=== PATIENT | male | born 1945 | race Caucasian/White ===

== ENCOUNTER → 2018-11-08 09:37 | Outpatient (CLI) | payer MEDICARE, BC, SELFPAY ==
[2018-11-08 11:06] LABS: Cholesterol 104 mg/dL (140-199); HDL Cholesterol 44 mg/dL (40-60); LDL Cholesterol Calculated 45 mg/dL (<100); Triglycerides 74 mg/dL (35-150)
== END ==
PROVIDERS: Visit Provider Internal Medicine
DX: I25.10 Atherosclerotic heart disease of native coronary artery without angina pectoris (principal)
CPT/HCPCS: 36415; 80061

== ENCOUNTER → 2019-03-06 11:23 | Outpatient (CLI) | payer MEDICARE, BC, SELFPAY ==
--- NOTE | 2019-03-06 | DI.CT.S_ITS ---
PROCEDURE: CT HEAD/BRAIN WO CON INDICATIONS: Concussion without loss of consciousness TECHNIQUE: Noncontrast 4.5 mm thick angled axial sections acquired from the foramen magnum to the vertex, with coronal and sagittal reformats. For radiation dose reduction, the following was used: automated exposure control, adjustment of mA and/or kV according to patient size. COMPARISON: None. FINDINGS: Image quality: Excellent. CSF spaces: Basal cisterns are patent. The ventricles are symmetric in size and shape. Brain: There is a small amount of left superior frontal extra-axial hemorrhage, which is attributed to subdural hemorrhage. This is best seen on coronal images, as on series 4 image 24 and has a maximum thickness of 4 millimeters. No associated significant mass effect can be seen. No additional intracranial hemorrhage is detected. No intracranial masses. There is cerebral volume loss for age, with resultant ventricular and sulcal prominence. There are periventricular and deep white matter chronic small vessel ischemic changes. There is intracranial internal carotid artery atherosclerosis. Skull and face: Calvarium and visualized facial bones appear intact, without suspicious lesions. Postoperative changes of both globes can be seen. Sinuses: Visualized sinuses and mastoids are clear. IMPRESSION: A small amount of acute appearing left-sided subdural hemorrhage can be seen. Note: Critical finding of intracranial hemorrhage related to Dr. Monzon at 11:45 AM [place] time on March 06, 2019 via medical affairs leader.Radha. Dr. Monzon will call back if there are any questions. Dictated by: Greg Harper M.D. on 03/06/2019 at 10:42 Approved by: Greg Harper M.D. on 03/06/2019 at 10:47
[2019-03-06 14:22] LABS: Alanine Aminotransferase 49 IU/L (<50); Albumin 4.3 g/dL (3.5-5.0); Albumin Globulin Ratio 1.5 (1.0-2.8); Alkaline Phosphatase 86 U/L (38-126); Aspartate Aminotransferase 46 IU/L (17-59); BUN Creatinine Ratio 28.6 (6-22); Bilirubin Total 0.6 mg/dL (0.2-1.3); Blood Urea Nitrogen 20 mg/dL (9-20); Carbon Dioxide 31 mmol/L (22-32); Chloride 98 mmol/L (98-107); Estimated Glomerular Filt Rate > 60.0 mL/min (>60); Gamma Glutamyl Transpeptidase 75 U/L (15-73); Globulin 2.9 g/dL (1.7-4.1); Glucose 97 mg/dL (80-110); HEMOLYSIS < 15 (0-50); Potassium 4.5 mmol/L (3.4-5.1); Sodium 136 mmol/L (137-145); Total Protein 7.2 g/dL (6.3-8.2)
[2019-03-06 14:26] LABS: High Sensitivity CRP - Cardiac 0.9 mg/L (1.0-3.0)
[2019-03-06 14:52] LABS: TSH w/ Reflex to FT4 1.73 uIU/mL (0.47-4.68)
[2019-03-10 16:31] LABS: Triiodothyronine T3 Total 100 ng/dL (76-181)
== END ==
PROVIDERS: Visit Provider Internal Medicine
DX: S06.5X0A Traumatic subdural hemorrhage without loss of consciousness, initial encounter (principal); S06.0X0A Concussion without loss of consciousness, initial encounter; I25.119 Atherosclerotic heart disease of native coronary artery with unspecified angina pectoris; R74.0 Nonspecific elevation of levels of transaminase and lactic acid dehydrogenase [LDH]; R68.89 Other general symptoms and signs; X58.XXXA Exposure to other specified factors, initial encounter
CPT/HCPCS: 36415; 70450; 80053; 82977; 84443; 84480; 86140

== ENCOUNTER → 2019-03-09 09:33 | Outpatient (CLI) | payer MEDICARE, BC, SELFPAY ==
--- NOTE | 2019-03-09 09:42 | DI.CT.S_ITS ---
PROCEDURE: CT HEAD/BRAIN WO CON INDICATIONS: SUBDURAL HEMATOMA TECHNIQUE: Noncontrast 4.5 mm thick angled axial sections acquired from the foramen magnum to the vertex, with coronal and sagittal reformats. For radiation dose reduction, the following was used: automated exposure control, adjustment of mA and/or kV according to patient size. COMPARISON: [facility], CT, CT HEAD/BRAIN WO CON, 03/06/2019, 11:27. FINDINGS: Image quality: Excellent. CSF spaces: Basal cisterns are patent. The ventricles are symmetric in size and shape. Brain: There is a small amount of left superior frontal subdural hemorrhage, which is clearly improved compared to the prior examination, now measuring 2-3 mm in thickness. No intracranial masses. There is cerebral volume loss for age, with resultant ventricular and sulcal prominence. There are periventricular and deep white matter chronic small vessel ischemic changes. There is intracranial internal carotid artery atherosclerosis. Skull and face: Calvarium and visualized facial bones appear intact, without suspicious lesions. Sinuses: Small mucous retention cyst can be seen within the left maxillary sinus. The paranasal sinuses and the mastoid air cells are otherwise unremarkable. IMPRESSION: Clearly improved left subdural hemorrhage. Note: Dr. Monzon was not available to discuss this case at the time of this dictation. Findings relayed to Dr. Monzon via office staff, Sandra, at 1107 hrs. [place] time on March 09, 2019. Dr. Monzon will call back if there any questions. Dictated by: Greg Harper M.D. on 03/09/2019 at 10:03 Approved by: Greg Harper M.D. on 03/09/2019 at 10:09
== END ==
PROVIDERS: Visit Provider Internal Medicine
DX: S06.5X0A Traumatic subdural hemorrhage without loss of consciousness, initial encounter (principal); S06.0X0A Concussion without loss of consciousness, initial encounter; X58.XXXA Exposure to other specified factors, initial encounter
CPT/HCPCS: 70450

== ENCOUNTER → 2019-03-24 15:18 | Outpatient (CLI) | payer MEDICARE, BC, SELFPAY ==
--- NOTE | 2019-03-24 | DI.CT.S_ITS ---
PROCEDURE: CT HEAD/BRAIN WO CON INDICATIONS: Traumatic subdural hemorrhage with loss of consciousness TECHNIQUE: Noncontrast 4.5 mm thick angled axial sections acquired from the foramen magnum to the vertex, with coronal and sagittal reformats. For radiation dose reduction, the following was used: automated exposure control, adjustment of mA and/or kV according to patient size. COMPARISON: [facility], CT, CT HEAD/BRAIN WO CON, 03/09/2019, 9:38. FINDINGS: Image quality: Excellent. CSF spaces: Basal cisterns are patent. No extra-axial fluid collections. The ventricles are symmetric in size and shape. Brain: Previous left subdural hemorrhage is no longer visualized. No new areas of hemorrhage are identified. There is cerebral volume loss for age, with resultant ventricular and sulcal prominence. There are periventricular and deep white matter chronic small vessel ischemic changes. There is intracranial internal carotid artery atherosclerosis. Skull and face: Calvarium and visualized facial bones appear intact, without suspicious lesions. Sinuses: Visualized sinuses and mastoids are clear. IMPRESSION: 1. Interval resolution of previous left subdural hemorrhage. Dictated by: Natasha Wallace M.D. on 03/24/2019 at 15:54 Approved by: Natasha Wallace M.D. on 03/24/2019 at 15:56
== END ==
PROVIDERS: Visit Provider Internal Medicine
DX: S06.5X9A Traumatic subdural hemorrhage with loss of consciousness of unspecified duration, initial encounter (principal)
CPT/HCPCS: 70450

== ENCOUNTER → 2019-10-26 17:14 | Outpatient (CLI) | payer MEDICARE, BC, SELFPAY ==
[2019-10-26 18:00] LABS: Add Manual Diff / Slide Review YES; Hemoglobin 13.1 g/dL (13.5-17.5); Mean Corpuscular HGB Conc 34.4 % (30-36); Mean Corpuscular Hemoglobin 31.8 PG (26-34); Mean Corpuscular Volume 92.3 fL (80-100); Platelet Count 156 X10^3/uL (150-400); Red Blood Cell Count 4.12 X10^6/uL (4.5-5.9); Red Cell Distribution Width 13.6 % (11.6-14.8)
[2019-10-26 18:10] LABS: Alanine Aminotransferase 39 IU/L (<50); Albumin 4.3 g/dL (3.5-5.0); Albumin Globulin Ratio 1.3 (1.0-2.8); Alkaline Phosphatase 74 U/L (38-126); Aspartate Aminotransferase 53 IU/L (17-59); BUN Creatinine Ratio 28.6 (6-22); Bilirubin Total 1.1 mg/dL (0.2-1.3); Blood Urea Nitrogen 20 mg/dL (9-20); Calcium 8.7 mg/dL (8.4-10.2); Carbon Dioxide 27 mmol/L (22-32); Chloride 94 mmol/L (98-107); Estimated Glomerular Filt Rate > 60.0 mL/min (>60); Globulin 3.2 g/dL (1.7-4.1); Glucose 102 mg/dL (80-110); HEMOLYSIS < 15 (0-50); Potassium 3.9 mmol/L (3.4-5.1); Sodium 129 mmol/L (137-145); Total Protein 7.5 g/dL (6.3-8.2)
[2019-10-26 18:24] LABS: Neutrophils Absolute Manual 5610 /uL (3000-5900); RBC Morphology Normal Morphology; Total Cells Counted 100
[2019-10-26 18:42] LABS: TSH w/ Reflex to FT4 1.73 uIU/mL (0.47-4.68)
== END ==
PROVIDERS: PCP Internal Medicine; Referring Provider Internal Medicine; Visit Provider Internal Medicine
DX: N50.89 Other specified disorders of the male genital organs (principal); R25.2 Cramp and spasm
CPT/HCPCS: 36415; 80053; 84443; 85025

== ENCOUNTER → 2019-10-28 09:33 | Outpatient (CLI) | payer MEDICARE, BC, SELFPAY ==
--- NOTE | 2019-10-28 | DI.US.S_ITS ---
PROCEDURE: US SCROTUM INDICATIONS: OTHER SPECIFIED DISORDERS OF MALE GENTALIA TECHNIQUE: Real-time scanning was performed of the scrotum and testicles, with image documentation. Color and pulse Doppler interrogation was performed of both testicles. COMPARISON: None. FINDINGS: Right: Testicle is normal in size at 2.1 x 2.9 x 4.3 cm, and homogenous in echotexture. Epididymis is normal in overall size and morphology except for presence of a 2.2 x 2.5 x 2.1 cm cyst at the right epididymal head, the etiology of palpable lump in that area.. No hydrocele but there is a very small varicocele. Overlying scrotal skin is normal in thickness. Left: Testicle is normal in size at 2.1 x 2.8 x 4.3 cm, and homogeneous in echotexture. Epididymis is normal in overall size and morphology. No varicoceles. There is a small left-sided hydrocele, minimal in size Overlying scrotal skin is normal in thickness. Doppler: Color and pulse Doppler demonstrate normal and symmetric arterial flow in both testicles. IMPRESSION: Epididymal head cyst on the right measures up to 2.5 cm and causes the palpable abnormality of current clinical concern. No testicular malignancy is suspected. Very small right-sided varicocele and scant left hydrocele. Dictated by: César Soni M.D. on 10/28/2019 at 11:19 Approved by: César Soni M.D. on 10/28/2019 at 11:40
== END ==
PROVIDERS: PCP Internal Medicine; Referring Provider Internal Medicine; Visit Provider Internal Medicine
DX: N50.89 Other specified disorders of the male genital organs (principal); N50.3 Cyst of epididymis
CPT/HCPCS: 76870

== ENCOUNTER → 2019-12-15 07:44 | Outpatient (CLI) | payer MEDICARE, BC, SELFPAY ==
[2019-12-15 08:13] LABS: Bacteria Urine None Seen; WBC Urine None Seen (0-5/HPF)
[2019-12-15 09:36] LABS: Hemoglobin 13.8 g/dL (13.5-17.5); Mean Corpuscular HGB Conc 33.6 % (30-36); Mean Corpuscular Hemoglobin 31.4 PG (26-34); Mean Corpuscular Volume 93.4 fL (80-100); Platelet Count 152 X10^3/uL (150-400); Red Blood Cell Count 4.39 X10^6/uL (4.5-5.9); Red Cell Distribution Width 13.8 % (11.6-14.8); White Blood Cell Count 16.8 X10^3/uL (4.5-11.0)
[2019-12-15 09:38] LABS: Add Manual Diff / Slide Review YES; Appearance Urine UA CLEAR; Bilirubin Urine UA NEGATIVE (NEGATIVE); Color Urine UA YELLOW; Glucose Urine UA NEGATIVE (Negative); Ketones Urine UA NEGATIVE (NEGATIVE); Leukocyte Esterase Urine UA NEGATIVE (NEGATIVE); Nitrite Urine UA NEGATIVE (Negative); Occult Blood Urine UA NEGATIVE (Negative); Protein Urine UA NEGATIVE (Negative); Urobilinogen Urine UA 0.2 E.U./dL (0.2)
[2019-12-15 09:48] LABS: Culture Indicated Urine Cult Not Indicated; RBC Urine 0-1/HPF (0-5/HPF)
[2019-12-15 09:55] LABS: Cholesterol 117 mg/dL (140-199); Gamma Glutamyl Transpeptidase 40 U/L (15-73); HDL Cholesterol 39 mg/dL (40-60); LDL Cholesterol Calculated 59 mg/dL (<100); Triglycerides 97 mg/dL (35-150)
[2019-12-15 10:03] LABS: Sodium Urine Random 92 mmol/L (30-90)
[2019-12-15 10:04] LABS: NT-proBNP (BNP-Adult 18+) 100 pg/mL (<450)
[2019-12-15 10:13] LABS: Neutrophils Absolute Manual 4704 /uL (3000-5900); RBC Morphology Normal Morphology; Total Cells Counted 100
[2019-12-15 10:47] LABS: Alanine Aminotransferase 40 IU/L (<50); Albumin 4.4 g/dL (3.5-5.0); Albumin Globulin Ratio 1.3 (1.0-2.8); Alkaline Phosphatase 73 U/L (38-126); Aspartate Aminotransferase 51 IU/L (17-59); BUN Creatinine Ratio 21.5 (6-22); Bilirubin Total 0.9 mg/dL (0.2-1.3); Blood Urea Nitrogen 17 mg/dL (9-20); Calcium 9.1 mg/dL (8.4-10.2); Carbon Dioxide 31 mmol/L (22-32); Chloride 98 mmol/L (98-107); Estimated Glomerular Filt Rate > 60.0 mL/min (>60); Globulin 3.3 g/dL (1.7-4.1); Glucose 98 mg/dL (80-110); HEMOLYSIS < 15 (0-50); Potassium 4.4 mmol/L (3.4-5.1); Sodium 136 mmol/L (137-145); Total Protein 7.7 g/dL (6.3-8.2)
[2019-12-16 16:12] LABS: Osmolality Urine 584 mOsmol/kg (.); Osmolality, Serum 280 mOsmol/kg (280-301)
== END ==
PROVIDERS: PCP Internal Medicine; Referring Provider Internal Medicine; Visit Provider Internal Medicine
DX: E78.5 Hyperlipidemia, unspecified (principal); E87.1 Hypo-osmolality and hyponatremia; Z86.79 Personal history of other diseases of the circulatory system; D72.820 Lymphocytosis (symptomatic); D64.9 Anemia, unspecified
CPT/HCPCS: 36415; 80053; 80061; 81001; 82977; 83880; 83930; 83935; 84300; 85025

== ENCOUNTER → 2019-12-31 16:02 | Outpatient (CLI) | payer MEDICARE, BC, SELFPAY ==
--- NOTE | 2019-12-31 | DI.MRI.S_ITS ---
PROCEDURE: MR HEAD/BRAIN WO CON INDICATIONS: HEADACHE, UNSPECIFIED TECHNIQUE: Non-contrast axial T1 spin echo, axial T2 fast spin echo, sagittal and axial FLAIR, coronal T2 fast spin echo, axial gradient echo, axial diffusion and ADC through the brain. COMPARISON: [facility], CT, CT HEAD/BRAIN WO CON, 03/24/2019, 15:32. [facility], CT, CT HEAD/BRAIN WO CON, 03/09/2019, 9:38. [facility], CT, CT HEAD/BRAIN WO CON, 03/06/2019, 11:27. FINDINGS: Image quality: Excellent. CSF spaces: Ventricles appear symmetric in size and shape. Basal cisterns are patent. No extra-axial fluid collections. Brain: There is an epidural hematoma in the right parietal lobe measuring 1.8 x 2.0 x 6.5 cm, new since the CT on 03/24/2019. Based on the MR signal characteristics, the hematoma is likely late subacute. There is mild mass effect. No midline shift. Trace subdural hematoma along the right convexity may be present. Small subdural hematoma in the left frontal lobe on prior CT exams have resolved. No intracranial bleeds or mass effects. There is mild cerebral volume loss for age. There are mild periventricular and deep white matter chronic small vessel ischemic changes. Brainstem appears normal. Diffusion-weighted images show no acute ischemic insults. No chronic ischemic insults. Normal intravascular flow voids are present. Skull and face: Calvarial bone marrow is normal in signal. Orbits are normal. Sinuses: There is bilateral frontal, ethmoid and maxillary sinus mucosal thickening. The mastoids are clear. IMPRESSION: 1. There is a late subacute epidural hematoma in the right parietal lobe measuring 1.8 x 2.0 x 6.5 cm. There is mild mass effect. No midline shift. I have discussed the result with the patient. Attempt was made to contact the patient's primary care doctor Dr. Mendiola. Dr. Mendiola's office was closed. The patient was sent the ER to be evaluated. I spoke with Dr. Del Rosario in ER regarding the patient and the MRI result. 2. Bilateral frontal, ethmoid and maxillary sinus mucosal thickening consistent with chronic sinusitis. Dictated by: Benjie Feldman M.D. on 12/31/2019 at 17:16 Approved by: Benjie Feldman M.D. on 12/31/2019 at 17:41
== END ==
PROVIDERS: PCP Internal Medicine; Referring Provider Internal Medicine; Visit Provider Internal Medicine
DX: I62.1 Nontraumatic extradural hemorrhage (principal); R51.9 Headache, unspecified
CPT/HCPCS: 70553

== ENCOUNTER 2019-12-31 17:50 | Emergency (ER) | payer MEDICARE, BC, SELFPAY ==
[2019-12-31 18:07] VITALS: BP 190/87; PULSE 89; RESP 16; TEMP 36.8; O2SAT 97; BMI 23.8
--- NOTE | 2019-12-31 18:18 | ED.NEUROSD ---
HPI - Neuro Symptoms/Deficit General Chief Complaint: Neuro Symptoms/Deficit Stated Complaint: brain bleed per MRI Time Seen by Provider: 12/31/19 18:03 Source: patient Mode of arrival: Ambulatory Limitations: no limitations History of Present Illness HPI Narrative: Patient is a 74-year-old male who was sent to the emergency department after having an outpatient MRI of his brain performed earlier today. The MRI showed a subacute epidural hematoma of the right parietal lobe. Patient states that the MRI was initially ordered by his primary provider. Was actually ordered at the beginning of this month which was 3 and half weeks ago. He saw his primary provider at that visit because he was having what he describes as sinus pain and also some visual disturbances. At the beginning of the year he had a traumatic subdural hematoma. Which had subsequent CT scans that showed resolution of this. He denied over the past 2 months any trauma. And states that over the past 2 weeks he has essentially been symptom-free. On Anticoagulants: No Review of Systems Constitutional Constitutional: Denies fever(s) and Denies headache(s) Eyes Eyes: Denies change in vision ENT Ears, Nose, Mouth, and Throat: Denies vertigo, Denies dizziness, Denies headache(s), Denies disequilibrium and Denies sinus pressure Cardiovascular Cardiovascular: Denies chest pain and Denies dyspnea Respiratory Respiratory: Denies dyspnea Gastrointestinal Gastrointestinal: Denies abdominal pain, Denies nausea and Denies vomiting Musculoskeletal Musculoskeletal: Denies tingling Integumentary/Breasts Skin/Breast: Denies rash Neurologic Neurologic: Denies abnormal speech, Denies confusion, Denies vertigo, Denies dizziness, Denies headache(s), Denies memory loss, Denies tingling and Denies disequilibrium Psychiatric Psychiatric: Denies confusion and Denies memory loss Hematologic/Lymphatic Hematologic/Lymphatic: Denies easy bleeding and Denies easy bruising Allergic/Immunologic Allergic/Immunologic: Denies urticaria Patient History Medical History Subdural hematoma (Acute) Social History Smoking Status: Former smoker Smoking Status: Former smoker Substance Use Type: does not use Exam Initial Vital Signs Initial Vital Signs: Vital Signs Temperature 98.3 F 12/31/19 18:07 Pulse Rate 89 12/31/19 18:07 Respiratory Rate 16 12/31/19 18:07 Blood Pressure 190/87 H 12/31/19 18:07 Pulse Oximetry 97 12/31/19 18:07 Const General: cooperative, comfortable and well developed Limitations: mental status not altered HENMT Head: normal to inspection and normocephalic Resp Effort & Inspection: normal respiratory effort Cardio Rate: regular rate Skin Lesions: no lesions Rashes: no rashes Neuro General: patient alert, patient awake and patient oriented x3 Cognition: normal cognition Gait: normal gait Extrem General: normal to inspection Psych Appearance: grossly normal and well kempt Scores GCS Rio coma scale eye opening: Spontaneous Rio coma scale verbal response: Orientated [place] coma scale motor response: Obey commands [place] coma scale total score: 15 Course Vital Signs Vital signs: Vital Signs - 8 hr 12/31/19 18:07 12/31/19 19:41 12/31/19 20:00 Temperature 98.3 F Pulse Rate 89 53 L 53 L Respiratory Rate 16 Blood Pressure 190/87 H 141/73 H Pulse Oximetry 97 97 95 MDM - Neuro Symptoms/Deficit Imaging Data MRI: Radiologist's Impression: [place] [address] Magnetic Resonance Report Signed Patient: Segundo Dee#: [id number] : 4Acct:[id number] Age/Sex: 74 / MDate of Service: 12/31/19 Loc: MRI Accession Number: [id number] Procedure: MR head/brain wo/w con Ordering Provider: Marlena Monzon MD PROCEDURE: MR HEAD/BRAIN WO CON INDICATIONS: HEADACHE, UNSPECIFIED TECHNIQUE: Non-contrast axial T1 spin echo, axial T2 fast spin echo, sagittal and axial FLAIR, coronal T2 fast spin echo, axial gradient echo, axial diffusion and ADC through the brain. COMPARISON: [facility], CT, CT HEAD/BRAIN WO CON, 03/24/2019, 15:32. [facility], CT, CT HEAD/BRAIN WO CON, 03/09/2019, 9:38. [facility], CT, CT HEAD/BRAIN WO CON, 03/06/2019, 11:27. FINDINGS: Image quality: Excellent. CSF spaces: Ventricles appear symmetric in size and shape. Basal cisterns are patent. No extra-axial fluid collections. Brain: There is an epidural hematoma in the right parietal lobe measuring 1.8 x 2.0 x 6.5 cm, new since the CT on 03/24/2019. Based on the MR signal characteristics, the hematoma is likely late subacute. There is mild mass effect. No midline shift. Trace subdural hematoma along the right convexity may be present. Small subdural hematoma in the left frontal lobe on prior CT exams have resolved. No intracranial bleeds or mass effects. There is mild cerebral volume loss for age. There are mild periventricular and deep white matter chronic small vessel ischemic changes. Brainstem appears normal. Diffusion-weighted images show no acute ischemic insults. No chronic ischemic insults. Normal intravascular flow voids are present. Skull and face: Calvarial bone marrow is normal in signal. Orbits are normal. Sinuses: There is bilateral frontal, ethmoid and maxillary sinus mucosal thickening. The mastoids are clear. IMPRESSION: 1. There is a late subacute epidural hematoma in the right parietal lobe measuring 1.8 x 2.0 x 6.5 cm. There is mild mass effect. No midline shift. I have discussed the result with the patient. Attempt was made to contact the patient's primary care doctor Dr. Mendiola. Dr. Mendiola's office was closed. The patient was sent the ER to be evaluated. I spoke with Dr. Del Rosario in ER regarding the patient and the MRI result. 2. Bilateral frontal, ethmoid and maxillary sinus mucosal thickening consistent with chronic sinusitis. Dictated by: Benjie Feldman M.D. on 12/31/2019 at 17:16 Approved by: Benjie Feldman M.D. on 12/31/2019 at 17:41 [facility] Narrative Medical decision making narrative: The MRI included in this note is for reference purposes only. It was ordered by his primary doctor and obtained as an outpatient. 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 Given the patient had normal neurologic symptoms he recommended discharge home and a repeat CT scan in approximately 6 weeks scan that can be ordered by his primary provider. Had a discussion with him regarding this. Had a discussion about return precautions. He expressed understanding and agreement. Discharge Plan Departure Patient Disposition: Home Clinical Impression: Epidural hematoma Discharge Date/Time: 12/31/19 20:50 Instructions: DI for Epidural Hematoma Activity Restrictions/Additional Instructions: I discussed your case this evening with Dr. Hogan who is a neurosurgeon at [facility]. He evaluated your MRI. He recommended that you have a follow-up head CT in 6 weeks. This can be ordered by your primary provider. Be sure to keep all of your scheduled medical appointments. Return to the emergency department for any new or worsening symptoms to include headaches, vision changes, nausea and vomiting that is not controlled, balance issues or any other new or worsening symptoms Referrals: Marlena Monzon MD [Primary Care Provider] -
--- NOTE | 2019-12-31 18:41 | PC.NURSE ---
pt reports a headache for weeks. started as a sinus infection. reports he was finally able to get scheduled for an MRI today. pt is AAOX4. denies any complaints.
[2019-12-31 19:41] VITALS: PULSE 53; O2SAT 97
[2019-12-31 20:00] VITALS: BP 141/73; PULSE 53; O2SAT 95
== END 2019-12-31 20:50 | disposition home or self-care (01) ==
PROVIDERS: Emergency Provider Emergency Medicine; PCP Internal Medicine
DX: S06.4X9A Epidural hemorrhage with loss of consciousness of unspecified duration, initial encounter (principal)
CPT/HCPCS: 70553; 99281; 99283

== ENCOUNTER → 2020-01-15 07:55 | Outpatient (CLI) | payer MEDICARE, BC, SELFPAY ==
--- NOTE | 2020-01-15 | DI.MRI.S_ITS ---
PROCEDURE: MR HEAD/BRAIN WO CON INDICATIONS: Epidural hemorrhage without loss of consciousness, TECHNIQUE: Non-contrast axial T1 spin echo, axial T2 fast spin echo, sagittal and axial FLAIR, coronal T2 fast spin echo, axial gradient echo, axial diffusion and ADC through the brain. COMPARISON: [facility], CT, CT HEAD/BRAIN WO CON, 03/24/2019, 15:32. [facility], CT, CT HEAD/BRAIN WO CON, 03/09/2019, 9:38. [facility], CT, CT HEAD/BRAIN WO CON, 03/06/2019, 11:27. [facility], MR, MR HEAD/BRAIN WO CON, 12/31/2019, 16:44. FINDINGS: Image quality: Excellent. CSF spaces: Ventricles appear symmetric in size and shape. Basal cisterns are patent. There is again seen an extra-axial fluid collection, which appears lens shaped and is seen along the right posterior superior cerebral hemisphere. This measures 6.3 x 1.7 cm in greatest axial dimension, compared to 6.5 x 5 2 cm, when measured in a similar fashion. Associated mass effect is seen, yet without midline shift. There is associated thickening seen of the right dura, with increased signal on FLAIR imaging. Brain: There is cerebral volume loss for age. There are periventricular and deep white matter chronic small vessel ischemic changes. Brainstem appears normal. Diffusion-weighted images show no acute ischemic insults. No chronic ischemic insults. Normal intravascular flow voids are present. Skull and face: Calvarial bone marrow is normal in signal. Orbits are normal. Sinuses: Atrr-[id number] mucosal thickening is seen within the ethmoid air cells. Sinuses and mastoids are otherwise clear. IMPRESSION: Slowly resolving epidural hemorrhage. Dictated by: Greg Harper M.D. on 01/15/2020 at 9:01 Approved by: Greg Harper M.D. on 01/15/2020 at 9:08
[2020-01-15 09:19] LABS: Hematocrit 40.4 % (41-53); Hemoglobin 13.6 g/dL (13.5-17.5); Mean Corpuscular HGB Conc 33.7 % (30-36); Mean Corpuscular Hemoglobin 31.4 PG (26-34); Mean Corpuscular Volume 93.2 fL (80-100); Platelet Count 144 X10^3/uL (150-400); Prothrombin Time 11.9 SECONDS (10.1-12.7); Red Blood Cell Count 4.34 X10^6/uL (4.5-5.9); White Blood Cell Count 16.4 X10^3/uL (4.5-11.0)
[2020-01-15 09:22] LABS: PTT Partial Thromboplastin Tim 29 SECONDS (26.4-36.2)
[2020-01-15 09:25] LABS: Add Manual Diff / Slide Review YES
[2020-01-15 09:27] LABS: Blood Urea Nitrogen 17 mg/dL (9-20); Carbon Dioxide 35 mmol/L (22-32); Chloride 98 mmol/L (98-107); Estimated Glomerular Filt Rate > 60.0 mL/min (>60); Glucose 80 mg/dL (80-110); HEMOLYSIS < 15 (0-50); Magnesium 2.2 mg/dL (1.6-2.3); Potassium 4.5 mmol/L (3.4-5.1); Sodium 136 mmol/L (137-145)
[2020-01-15 10:23] LABS: Sodium Urine Random 53 mmol/L (30-90)
[2020-01-15 10:29] LABS: Neutrophils Absolute Manual 2624 /uL (3000-5900); Total Cells Counted 100
[2020-01-15 10:30] LABS: Platelet Estimate Decreased on smear; RBC Morphology Normal Morphology
[2020-01-15 10:31] LABS: Reactive Lymphocytes 1+
== END ==
PROVIDERS: PCP Internal Medicine; Referring Provider Internal Medicine; Visit Provider Internal Medicine
DX: S06.4X Epidural hemorrhage (principal); C91.10 Chronic lymphocytic leukemia of B-cell type not having achieved remission; E87.1 Hypo-osmolality and hyponatremia; I25.10 Atherosclerotic heart disease of native coronary artery without angina pectoris
CPT/HCPCS: 36415; 70551; 80048; 83735; 84300; 85025; 85610; 85730

== ENCOUNTER → 2020-02-29 08:57 | Outpatient (CLI) | payer MEDICARE, BC, SELFPAY ==
--- NOTE | 2020-02-29 | DI.MRI.S_ITS ---
PROCEDURE: MR HEAD/BRAIN WO CON INDICATIONS: Epidural hemorrhage without loss of consciousness TECHNIQUE: Non-contrast axial T1 spin echo, axial T2 fast spin echo, sagittal and axial FLAIR, coronal T2 fast spin echo, axial gradient echo, axial diffusion and ADC through the brain. COMPARISON: [facility], , MR HEAD/BRAIN WO CON, 01/15/2020, 8:47. FINDINGS: Image quality: Excellent. CSF spaces: Ventricles appear symmetric in size and shape. Basal cisterns are patent. No extra-axial fluid collections. Brain: The previously seen right parietal epidural hemorrhage has decreased in size, with a current maximal thickness of roughly 13 mm (previously measuring 18 mm in the same plane).. There is cerebral volume loss for age. There are periventricular and deep white matter chronic small vessel ischemic changes. Brainstem appears normal. Diffusion-weighted images show no acute ischemic insults. No chronic ischemic insults. Normal intravascular flow voids are present. Skull and face: Calvarial bone marrow is normal in signal. Orbits are normal. Sinuses: Mastoids are clear. Mild mucosal thickening in the bilateral frontal, ethmoid, sphenoid, and maxillary sinuses. IMPRESSION: 1. Resolving right epidural hemorrhage. 2. Volume loss and small vessel ischemic disease. 3. Sinus disease. Dictated by: Oscar Varela M.D. on 02/29/2020 at 11:42 Approved by: Oscar Varela M.D. on 02/29/2020 at 11:43
== END ==
PROVIDERS: PCP Internal Medicine; Referring Provider Internal Medicine; Visit Provider Internal Medicine
DX: S06.4X0A Epidural hemorrhage without loss of consciousness, initial encounter (principal); J32.4 Chronic pansinusitis
CPT/HCPCS: 70551

== ENCOUNTER → 2022-07-04 16:54 | Outpatient (CLI) | payer MEDICARE, BC, SELFPAY ==
--- NOTE | 2022-07-04 16:56 | DI.MRI.S_ITS ---
PROCEDURE: MR ANKLE RT WO CON INDICATIONS: Pain in right ankle and joints of right foot TECHNIQUE: Noncontrast sagittal T1 spin echo and T2 fast spin echo with fat saturation, axial proton density fast spin echo and T2 fast spin echo with fat saturation, coronal T1 spin echo and T2 fast spin echo with fat saturation through the ankle/hindfoot. COMPARISON: None. FINDINGS: Image quality: Excellent. Bones and joints: No bone marrow contusions or fractures. Subchondral cyst formation within the posterior inferior talus adjacent to the talocalcaneal joint. No hindfoot coalitions. No osteochondral injuries of the talar dome. No pathologic joint effusions. Medial structures: There is moderate ill-defined subcutaneous T2 signal elevation medially. The posterior tibialis, flexor digitorum longus, and flexor hallucis longus tendons are intact. Small amount of fluid surrounds the tibialis posterior and flexor digitorum longus tendons. The posterior tibial neurovascular bundle appears normal within the tarsal tunnel, without extrinsic mass effect. The deep layer (anterior and posterior tibiotalar ligaments) and superficial layer (tibionavicular, tibiospring, and tibiocalcaneal ligaments) of the deltoid ligament appear normal. The spring ligament components (superomedial calcaneonavicular, medioplantar oblique calcaneonavicular, and inferoplantar longitudinal ligaments) are intact. Lateral structures: Moderate ill-defined subcutaneous T2 signal elevation laterally. The anterior talofibular, calcaneofibular, and posterior talofibular ligaments appear intact. More superiorly, the anterior and posterior tibiofibular ligaments appear intact, as is the intermalleolar ligament. The tibiofibular syndesmosis is normal in width at 2 mm or less. The peroneus longus and brevis tendons demonstrate normal location and morphology. Adjacent bony peroneal tubercle and retrotrochlear prominence are normal in size. The sinus tarsi demonstrates normal fatty signal, without edema, fibrosis, or cyst formation. Visualized sinus tarsi components (cervical ligament, interosseous talocalcaneal ligament, roots of the inferior extensor retinaculum) appear normal. The calcaneonavicular and calcaneocuboid components of the bifurcate ligament appear intact. The dorsal calcaneocuboid ligament appears intact. Anterior structures: The tibialis anterior and extensor digitorum longus tendons are intact. There is full-thickness tearing of the extensor hallucis tendon distally at the level of the navicular. The dorsal talonavicular ligament appears intact. Posterior and plantar structures: Achilles tendon is intact. Medial and lateral bands of the plantar fascia are of normal thickness. No abductor digiti quinti muscle atrophy to suggest Dominguez neuropathy. IMPRESSION: 1. Full-thickness tearing of the extensor hallucis tendon. 2. Medial flexor tenosynovitis. 3. Diffuse subcutaneous edema versus cellulitis. 4. Talocalcaneal joint osteoarthritis. Dictated by: Oscar Varela M.D. on 07/05/2022 at 8:21 Approved by: Oscar Varela M.D. on 07/05/2022 at 8:25
== END ==
PROVIDERS: PCP Internal Medicine; Referring Provider Podiatrist; Visit Provider Podiatrist
DX: S96.811A Strain of other specified muscles and tendons at ankle and foot level, right foot, initial encounter (principal); M25.571 Pain in right ankle and joints of right foot; M65.871 Other synovitis and tenosynovitis, right ankle and foot; M19.071 Primary osteoarthritis, right ankle and foot
CPT/HCPCS: 73721

== ENCOUNTER 2022-07-09 11:23 | Emergency (ER) | payer MEDICARE, BC, SELFPAY ==
[2022-07-09 11:53] VITALS: BP 132/75; PULSE 55; RESP 16; TEMP 36.9; O2SAT 99; BMI 24.4
--- NOTE | 2022-07-09 12:09 | DI.US.S_ITS ---
PROCEDURE: US PERIPH VENOUS LOW EXTREM BI INDICATIONS: SWELLING TECHNIQUE: Real-time imaging, as well as color and pulse Doppler interrogation, were performed of the deep veins of both legs from the inguinal ligament to the popliteal fossa. COMPARISON: None. FINDINGS: Right: The common femoral, femoral and popliteal veins are normally compressible, and free of intraluminal thrombus. Color and pulse Doppler demonstrate normal phasic intravascular flow. There is normal augmentation response to distal compression maneuver. Left: The common femoral, femoral and popliteal veins are normally compressible, and free of intraluminal thrombus. Color and pulse Doppler demonstrate normal phasic intravascular flow. There is normal augmentation response to distal compression maneuver. Moderate bilateral calf soft tissue edema is seen. IMPRESSION: No evidence of DVT in visualized bilateral lower extremity veins. Bilateral calf soft tissue edema. Dictated by: Gigi Borden M.D. on 07/09/2022 at 13:36 Approved by: Gigi Borden M.D. on 07/09/2022 at 13:36
[2022-07-09 13:00] VITALS: PULSE 72
--- NOTE | 2022-07-09 14:25 | ED_ITS ---
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 Patient has a appointment with ortho specialist Dr. Blanchard tomorrow. Patient called Dr. Blanchard about the bilateral leg pain today, she sent him to the ED to rule out DVTs. Patient states that he has been sleeping in a recliner with his feet hanging down, after which his legs have been painful. Patient denies numbness, tingling, weakness. Patient is able to walk with a crutch. Related Data Allergies Allergy/AdvReac Type Severity Reaction Status Date / Time acetaminophen [From Zydone] Allergy Severe Confusion Verified 07/09/22 12:01 hydrocodone [From Zydone] Allergy Severe Confusion Verified 07/09/22 12:01 Review of Systems <Enid Leyva PA-C - Last Filed: 07/09/22 14:32> Review of Systems ROS Unobtainable: All systems reviewed & are unremarkable except as noted in HPI and below Constitutional Constitutional: Denies chills, Denies fatigue, Denies fever(s), Denies frequent falls, Denies lethargy and Denies weakness Eyes Eyes: Denies change in vision, Denies eye discharge, Denies irritation and Denies loss of vision ENT Ears, Nose, Mouth, and Throat: Denies change in voice, Denies dizziness, Denies neck pain, Denies sore throat and Denies throat swelling Cardiovascular Cardiovascular: Denies chest pain, Denies irregular heart rhythm, Denies lightheadedness, Denies palpitations, Denies dyspnea, Denies dyspnea on exertion and Denies orthopnea Respiratory Respiratory: Denies cough, Denies dyspnea, Denies dyspnea on exertion and Denies wheezing Gastrointestinal Gastrointestinal: Denies abdominal pain, Denies change in bowel habits, Denies diarrhea, Denies nausea and Denies vomiting Genitourinary Genitourinary: Denies hematuria, Denies flank pain, Denies urinary incontinence and Denies urinary urgency Musculoskeletal Musculoskeletal: Denies back pain, Denies muscle weakness, Denies neck pain, Denies numbness and Denies tingling Comments: Bilateral lower leg pain Integumentary/Breasts Skin/Breast: Denies pruritus, Denies erythema, Denies rash and Denies wounds Neurologic Neurologic: Denies behavioral changes, Denies confusion, Denies dizziness, Denies frequent falls, Denies loss of vision, Denies numbness, Denies tingling and Denies weakness Psychiatric Psychiatric: Denies anxiety, Denies behavioral changes, Denies confusion, Denies depression, Denies homicidal ideation and Denies suicidal ideation Endocrine Endocrine: Denies fatigue, Denies flushing and Denies palpitations Hematologic/Lymphatic Hematologic/Lymphatic: Denies easy bruising Allergic/Immunologic Allergic/Immunologic: Denies urticaria, Denies throat swelling and Denies wheezing Patient History <Enid Leyva PA-C - Last Filed: 07/09/22 14:32> Medical History Subdural hematoma Social History Smoking Status: Former smoker Smoking Status: Former smoker alcohol intake frequency: 0-2 drinks per day Substance Use Type: does not use Exam <Enid Leyva PA-C - Last Filed: 07/09/22 14:32> Narrative Exam Narrative: Const General:?cooperative, healthy appearing and comfortable [facility] Head:?normal to inspection Ears:?hearing grossly normal bilaterally Nose:?external nose normal Face and sinus:?normal facial exam and sinuses nontender Mouth:?oral mucosae normal Throat:?posterior oropharynx normal Eyes General:?appearance normal, both eyes and all related structures Neck Neck:?normal visual inspection and no lymphadenopathy noted Resp Effort & Inspection:?normal respiratory effort Auscultation:?clear to auscultation bilaterally Cardio Rate:?regular rate Rhythm:?regular rhythm Musculoskeletal Strength and sensation intact. Patient is walking with crutches due to tear of the extensor hallucis tendon in the right leg. Patient is neurovascularly intact. Neuro General:?patient alert, patient awake and patient oriented x3 Initial Vital Signs Initial Vital Signs: Vital Signs Temperature 98.4 F 07/09/22 11:53 Pulse Rate 55 L 07/09/22 11:53 Respiratory Rate 16 07/09/22 11:53 Blood Pressure 132/75 07/09/22 11:53 Pulse Oximetry 99 07/09/22 11:53 Oxygen Delivery Method Room Air 07/09/22 11:53 <Madeleine Almanza DO - Last Filed: 07/10/22 15:12> Initial Vital Signs Initial Vital Signs: Vital Signs Temperature 98.4 F 07/09/22 11:53 Pulse Rate 55 L 07/09/22 11:53 Respiratory Rate 16 07/09/22 11:53 Blood Pressure 132/75 07/09/22 11:53 Pulse Oximetry 99 07/09/22 11:53 Oxygen Delivery Method Room Air 07/09/22 11:53 Course <Enid Leyva PA-C - Last Filed: 07/09/22 14:32> Orders Ordered: ED Orders 07/09/22 12:09 US periph venous low extrem bi Stat Vital Signs Vital signs: Vital Signs - 8 hr 07/09/22 11:53 Temperature 98.4 F Pulse Rate 55 L Respiratory Rate 16 Blood Pressure 132/75 Pulse Oximetry 99 Oxygen Delivery Method Room Air <Madeleine Almanza DO - Last Filed: 07/10/22 15:12> Orders Ordered: ED Orders 07/09/22 12:09 US periph venous low extrem bi Stat Vital Signs Vital signs: Vital Signs - 8 hr 07/09/22 11:53 Temperature 98.4 F Pulse Rate 55 L Respiratory Rate 16 Blood Pressure 132/75 Pulse Oximetry 99 Oxygen Delivery Method Room Air MDM - Extremity (Nontraumatic) <JANUSZ Domínguez Last Filed: 07/09/22 14:32> MDM Narrative Medical decision making narrative: 76-year-old male who was recently diagnosed with a 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 Bilateral ultrasound of lower extremities performed with no acute findings of DVTs. Discussed findings with patient. Patient agrees to follow-up with Dr. Blanchard as scheduled tomorrow. ED return precautions were discussed with patient. Patient verbalized understanding. Discharge Plan Departure Patient Disposition: Home Clinical Impression: Leg pain Instructions: DI for Leg Pain Activity Restrictions/Additional Instructions: You were evaluated in the ED today for bilateral leg pain. The ultrasound shows no blood clots or DVTs. You may elevate your legs to reduce pain and infla mmation. Please follow-up with Dr. Blanchard as scheduled. Return to the ED if you experience any numbness, tingling, weakness. Referrals: Miscellaneous,Doctor, [Primary Care Provider] - Stand Alone Forms: Patient Portal/API <Madeleine Almanza DO - Last Filed: 07/10/22 15:12> Cosign ED Attending Nickature Attestation: I was immediately available in the department for consultation. Documentation has been reviewed.
== END 2022-07-09 14:34 | disposition home or self-care (01) ==
PROVIDERS: Emergency Provider Student in an Organized Health Care Education/Training Program
DX: M79.605 Pain in left leg (principal); M79.604 Pain in right leg
CPT/HCPCS: 93970; 99283

== ENCOUNTER → 2023-08-07 11:52 | Outpatient (CLI) | payer MEDICARE, BC, SELFPAY ==
[2023-08-07 13:36] LABS: Hemoglobin 12.9 g/dL (13.5-17.5); Mean Corpuscular Hemoglobin 31.8 PG (26-34); Mean Corpuscular Volume 93.7 fL (80-100); Platelet Count 143 X10^3/uL (150-400); Red Blood Cell Count 4.05 X10^6/uL (4.5-5.9); Red Cell Distribution Width 14.1 % (11.6-14.8); White Blood Cell Count 16.6 X10^3/uL (4.5-11.0)
[2023-08-07 13:39] LABS: Add Manual Diff / Slide Review YES
[2023-08-07 14:06] LABS: Neutrophils Absolute Manual 3486 /uL (3000-5900); Total Cells Counted 100
[2023-08-07 14:07] LABS: RBC Morphology Normal Morphology; Smudge Cells 1+
[2023-08-07 14:16] LABS: Alanine Aminotransferase 58 IU/L (<50); Albumin 4.3 g/dL (3.5-5.0); Albumin Globulin Ratio 1.7 (1.0-2.8); Alkaline Phosphatase 69 U/L (38-126); Aspartate Aminotransferase 67 IU/L (17-59); Bilirubin Total 1.1 mg/dL (0.2-1.3); Blood Urea Nitrogen 18 mg/dL (9-20); Calcium 8.6 mg/dL (8.4-10.2); Carbon Dioxide 28 mmol/L (22-32); Chloride 99 mmol/L (98-107); Estimated Glomerular Filt Rate > 60 mL/min (>60); Globulin 2.6 g/dL (1.7-4.1); Glucose 104 mg/dL (80-110); HEMOLYSIS < 15 (0-50); Potassium 4.3 mmol/L (3.4-5.1); Sodium 133 mmol/L (137-145); Total Protein 6.9 g/dL (6.3-8.2)
== END ==
PROVIDERS: Referring Provider Internal Medicine Hematology & Oncology; Visit Provider Internal Medicine Hematology & Oncology
DX: C91.10 Chronic lymphocytic leukemia of B-cell type not having achieved remission (principal)
CPT/HCPCS: 36415; 80053; 85007; 85025

== ENCOUNTER → 2023-11-14 12:03 | Outpatient (CLI) | payer MEDICARE, BC, SELFPAY ==
[2023-11-14 12:33] LABS: Hematocrit 40.2 % (41-53); Hemoglobin 13.8 g/dL (13.5-17.5); Mean Corpuscular HGB Conc 34.3 % (30-36); Mean Corpuscular Hemoglobin 32.1 PG (26-34); Mean Corpuscular Volume 93.7 fL (80-100); Platelet Count 156 X10^3/uL (150-400); Red Blood Cell Count 4.29 X10^6/uL (4.5-5.9); Red Cell Distribution Width 13.6 % (11.6-14.8); White Blood Cell Count 17.5 X10^3/uL (4.5-11.0)
[2023-11-14 12:36] LABS: Add Manual Diff / Slide Review YES
[2023-11-14 12:51] LABS: Neutrophils Absolute Manual 3150 /uL (3000-5900); RBC Morphology Normal Morphology; Total Cells Counted 100
[2023-11-14 13:04] LABS: Alanine Aminotransferase 47 IU/L (<50); Albumin 4.2 g/dL (3.5-5.0); Albumin Globulin Ratio 1.4 (1.0-2.8); Alkaline Phosphatase 70 U/L (38-126); Aspartate Aminotransferase 58 IU/L (17-59); BUN Creatinine Ratio 23.9 (6-22); Blood Urea Nitrogen 16 mg/dL (9-20); Calcium 9.4 mg/dL (8.4-10.2); Carbon Dioxide 28 mmol/L (22-32); Chloride 96 mmol/L (98-107); Estimated Glomerular Filt Rate > 60 mL/min (>60); Globulin 2.9 g/dL (1.7-4.1); Glucose 102 mg/dL (80-110); HEMOLYSIS < 15 (0-50); Potassium 4.2 mmol/L (3.4-5.1); Sodium 130 mmol/L (137-145); Total Protein 7.1 g/dL (6.3-8.2)
== END ==
PROVIDERS: Referring Provider Internal Medicine Hematology & Oncology; Visit Provider Internal Medicine Hematology & Oncology
DX: C91.10 Chronic lymphocytic leukemia of B-cell type not having achieved remission (principal)
CPT/HCPCS: 36415; 80053; 85007; 85025